=== PATIENT | male | born 1950 | race Caucasian/White ===

== ENCOUNTER 2016-10-24 16:40 | Observation (INO) | payer MEDICARE ==
[2016-10-24] MEDS ORDERED: Nitrostat 0.4 MG (ED) SL ONE ×2 (17:20→17:28)
[2016-10-24] MEDS ORDERED: BABY ASPIRIN 81 MG CHEW PO ONE (17:20)
--- NOTE | 2016-10-24 17:20 | ERPHSYRPT ---
<GERIVIRAJ - Last Filed: 10/24/16 19:50> - History of Present Illness Allergies/Adverse Reactions: cefaclor [From [facility]] Allergy (Verified 10/24/16 17:12) Hoarseness of voice Penicillins Allergy (Verified 10/24/16 17:12) Hives Home Medications: Aspirin [[place] Aspirin] 81 mg PO DAILY 10/24/16 [History] Cyanocobalamin 1000 Mcg/ml [Cyanocobalamin B-12 1000 MCG/ML] 1,000 mcg IJ [History] Dabigatran Etexilate Mesylate [Pradaxa] 150 mg PO BID 10/24/16 [History] Escitalopram Oxalate 20 mg PO DAILY 10/24/16 [History] Insulin Aspart [Novolog Flexpen] 25 unit SQ TID 10/24/16 [History] Insulin Glargine,Hum.rec.anlog [Lantus Solostar] 50 unit SQ BID 10/24/16 [ History] Lisinopril 10 mg [Zestril 10 MG] 10 mg PO QHS 10/24/16 [History] Omeprazole [Prilosec] 40 mg PO DAILY 10/24/16 [History] Tiotropium [place] Inhaler [Spiriva 18 Mcg/Cap Inhaler] 1 ea IH DAILY [History] - Radiology Exams Chest X-ray Interpretation: Discussed w/ radiologist ([facility]) Ordered Tests: Active Orders 24 hr Category Date Time Status Up With Assistance ROUTINE Activity 10/24/16 19:44 Inactive Accucheck ACHS Care 10/24/16 19:42 Inactive Admission/Status Order ROUTINE Care 10/24/16 19:43 Inactive Call Admit Doctor for Orders ROUTINE Care 10/24/16 19:42 Inactive Model Artists' STAT Care 10/24/16 17:20 Active Code Status Order ROUTINE Care 10/24/16 19:43 Inactive EKG-ER Only STAT Care 10/24/16 17:20 Completed IV Care Q6H Care 10/24/16 19:43 Inactive IV Insertion STAT Care 10/24/16 17:30 Active Implement Chest Pain Pathway ROUTINE Care 10/24/16 19:43 Inactive Pulse Oximetry (ED) STAT Care 10/24/16 17:20 Active Bertin Hose, Apply ROUTINE Care 10/24/16 19:43 Inactive Telemetry ROUTINE Care 10/24/16 19:43 Inactive Vital Signs Q4H Care 10/24/16 19:42 Inactive Weight,Daily 0600 Care 10/24/16 19:43 Inactive CHEST 1 VIEW (PORTABLE) Stat Exams 10/24/16 17:21 Completed AMYLASE Stat Lab 10/24/16 17:30 Completed BLOOD CULTURE Stat Lab 10/24/16 19:42 Received CBC W DIFF Stat Lab 10/24/16 17:30 Completed CMP Stat Lab 10/24/16 17:30 Completed D-DIMER QUANTITATION Stat Lab 10/24/16 17:30 Completed LIPASE Stat Lab 10/24/16 17:30 Completed NT PRO BNP Stat Lab 10/24/16 17:30 Completed PROTIME WITH INR Stat Lab 10/24/16 17:30 Completed PTT Stat Lab 10/24/16 17:30 Completed TROPONIN Q3H Lab 10/24/16 17:30 Completed TROPONIN Q3H Lab 10/24/16 21:05 Completed TROPONIN Q3H Lab 10/24/16 23:15 Completed TROPONIN Q3H Lab 10/25/16 02:15 Completed TROPONIN Q3H Lab 10/25/16 05:20 Completed EKG ONCE RT 10/25/16 01:20 Inactive EKG ONCE RT 10/26/16 05:00 Inactive EKG ONCE RT 10/27/16 05:00 Inactive EKG ONCE RT 10/28/16 05:00 Inactive EKG Q8HX2,QAMX3,PRN RT 10/24/16 19:43 Inactive Respiratory Nebulizer STAT RT 10/24/16 19:34 Completed Respiratory Nebulizer STAT RT 10/24/16 19:47 Inactive Transfer Order Routine Transfer 10/24/16 19:42 Completed Medication Summary Generic Name Dose Route Start Last Admin Trade Name Freq PRN Reason Stop Dose Admin Acetaminophen 325 - 650 mg 10/25/16 01:11 10/25/16 07:54 Tylenol 325 Mg PO 11/24/16 01:10 650 mg Q4H PRN PRN Administration FOR TEMP > 101 OR MILD PAIN Al Hydrox/Mg Hydrox/Simethicone 30 ml 10/25/16 01:11 Maalox Es 30 Ml Unit Dose PO 11/24/16 01:10 PRN PRN INDIGESTION Albuterol Sulfate 2.5 mg 10/25/16 11:02 Proventil 2.5 Mg/3 Ml Neb IH 11/24/16 11:01 Q4H PRN PRN SHORTNESS OF BREATH/WHEEZING Albuterol Sulfate 2.5 mg 10/25/16 15:00 10/25/16 14:18 Proventil 2.5 Mg/3 Ml Neb IH 11/24/16 14:59 2.5 mg QIDRT MELANI Administration Aspirin 81 mg 10/25/16 10:00 10/25/16 10:18 Ecotrin 81 Mg PO 11/24/16 09:59 81 mg DAILY MELANI Administration Dabigatran 150 mg 10/25/16 10:00 10/25/16 10:18 Pradaxa 75 Mg PO 11/24/16 09:59 150 mg BID MELANI Administration Escitalopram Oxalate 20 mg 10/25/16 10:00 10/25/16 10:18 Lexapro 10 Mg PO 11/24/16 09:59 20 mg DAILY MELANI Administration Sodium Chloride 1,000 mls @ 50 mls/hr 10/25/16 01:15 Sodium Chloride 0.9% 500 Ml IV 11/24/16 01:14 .Q20H MELANI Levofloxacin/Dextrose 100 mls @ 100 mls/hr 10/25/16 20:00 Levofloxacin 500mg/100ml D5w IV 11/24/16 19:59 Q24H MELANI Insulin Aspart 25 unit 10/25/16 09:00 10/25/16 13:38 Novolog Insulin SQ 11/24/16 08:59 25 unit TIDWM MELANI Administration Insulin Glargine 50 unit 10/25/16 10:00 10/25/16 10:19 Lantus Insulin SQ 11/24/16 09:59 50 unit BID MELANI Administration Lisinopril 10 mg 10/24/16 22:00 10/24/16 22:50 Zestril 10 Mg PO 11/23/16 21:59 10 mg QHS MELANI Administration Magnesium Hydroxide 30 - 60 ml 10/25/16 01:11 Milk Of Magnesia 30 Ml PO 11/24/16 01:10 HS PRN CONSTIPATION Morphine Sulfate 4 mg 10/25/16 01:11 Morphine Sulfate 2 Mg Inj IV 10/30/16 01:10 PRN PRN PAIN Nitroglycerin 0.4 mg 10/25/16 01:11 Nitrostat 0.4 Mg Tablet SL 11/24/16 01:10 .Q5MIN PRN CHEST PAIN Ondansetron HCl 4 mg 10/25/16 01:11 Zofran 4 Mg/2 Ml Vial IV 11/24/16 01:10 Q4H PRN PRN NAUSEA/VOMITING Pantoprazole Sodium 40 mg 10/25/16 10:00 10/25/16 10:18 Protonix 40mg Tablet PO 11/24/16 09:59 40 mg DAILY MELANI Administration Potassium Chloride 10 meq 10/25/16 10:00 10/25/16 10:18 Klor Con 10 Meq PO 11/24/16 09:59 10 meq DAILY MELANI Administration Senna/Docusate Sodium 2 udtab 10/25/16 01:11 Senokot-S Tablet PO 11/24/16 01:10 BID PRN PRN CONSTIPATION Tiotropium [place] 1 ea 10/25/16 10:00 10/25/16 10:42 Spiriva 18 Mcg/Cap Inhaler IH 11/24/16 09:59 1 ea DAILY MELANI Administration Discontinued Medications Generic Name Dose Route Start Last Admin Trade Name Freq PRN Reason Stop Dose Admin Acetaminophen 650 mg 10/24/16 19:42 Tylenol 325 Mg PO 11/23/16 19:41 Q4H PRN PRN PAIN AND/OR FEVER Al Hydrox/Mg Hydrox/Simethicone 30 ml 10/24/16 19:42 Maalox Es 30 Ml Unit Dose PO 11/23/16 19:41 Q4H PRN PRN INDIGESTION Albuterol/Ipratropium 3 ml 10/24/16 19:34 10/24/16 19:49 Duoneb 0.5-3 Mg/3 Ml Neb IH 10/24/16 19:35 3 ml STAT ONE Administration Albuterol/Ipratropium Confirm 10/24/16 19:42 Duoneb 0.5-3 Mg/3 Ml Neb Administered 10/24/16 19:43 Dose 3 ml IH .STK-MED ONE Albuterol/Ipratropium 3 ml 10/24/16 23:00 Duoneb 0.5-3 Mg/3 Ml Neb IH 11/23/16 22:59 Q4HRT MELANI Albuterol/Ipratropium Confirm 10/24/16 22:11 Duoneb 0.5-3 Mg/3 Ml Neb Administered 10/24/16 22:12 Dose 3 ml IH .STK-MED ONE Albuterol/Ipratropium 3 ml 10/24/16 23:00 10/25/16 10:42 Duoneb 0.5-3 Mg/3 Ml Neb IH 11/23/16 22:59 3 ml Q4HRT MELANI Administration Albuterol/Ipratropium 3 ml 10/25/16 15:00 Duoneb 0.5-3 Mg/3 Ml Neb IH 11/24/16 14:59 QIDRT MELANI Aspirin 243 mg 10/24/16 17:20 10/24/16 17:25 Baby Aspirin 81 Mg Chew PO 10/24/16 17:21 243 mg STAT ONE Administration Aspirin Confirm 10/24/16 17:28 Baby Aspirin 81 Mg Chew Administered 10/24/16 17:29 Dose 243 mg .ROUTE .STK-MED ONE Aspirin 325 mg 10/25/16 10:00 Ecotrin 325 Mg PO 11/24/16 09:59 DAILY MELANI Sodium Chloride 1,000 mls @ 100 mls/hr 10/24/16 17:30 10/24/16 17:34 Sodium Chloride 0.9% 1000 Ml IV 11/23/16 17:29 100 mls/hr .Q10H MELANI Administration Sodium Chloride Confirm 10/24/16 17:33 Sodium Chloride 0.9% 1000 Ml Administered 10/24/16 17:34 Dose 1,000 mls @ ud .ROUTE .STK-MED ONE Levofloxacin/Dextrose 100 mls @ 100 mls/hr 10/24/16 19:29 10/24/16 19:40 Levofloxacin 500mg/100ml D5w IV 10/24/16 20:28 100 mls/hr STAT ONE Administration Levofloxacin/Dextrose Confirm 10/24/16 19:32 Levofloxacin 500mg/100ml D5w Administered 10/24/16 19:33 Dose 100 mls @ ud IV .STK-MED ONE Sodium Chloride 500 mls @ 50 mls/hr 10/24/16 19:45 Sodium Chloride 0.9% 500 Ml IV 11/23/16 19:44 .Q10H MELANI Sodium Chloride Confirm 10/25/16 10:09 Sodium Chloride 0.9% 1000 Ml Administered 10/25/16 10:10 Dose 1,000 mls @ ud .ROUTE .STK-MED ONE Insulin Glargine 45 unit 10/24/16 22:00 10/24/16 22:50 Lantus Insulin SQ 11/23/16 21:59 45 unit BID [facility] Administration Levalbuterol HCl 1.25 mg 10/24/16 19:46 Xopenex 1.25 Mg/0.5 Ml Ud Nebule IH 11/23/16 19:45 Q2HPRN PRN DYSPNEA Magnesium Hydroxide 30 - 60 ml 10/24/16 19:42 Milk Of Magnesia 30 Ml PO 11/23/16 19:41 QDP PRN CONSTIPATION Morphine Sulfate 4 mg 10/24/16 19:42 Morphine Sulfate 2 Mg Inj IV 10/29/16 19:41 Q4H PRN PRN CHEST PAIN Nitroglycerin 0.4 mg 10/24/16 17:20 10/24/16 17:26 Nitrostat 0.4 Mg (Ed) SL 10/24/16 17:21 0.4 mg STAT ONE Administration Nitroglycerin Confirm 10/24/16 17:28 Nitrostat 0.4 Mg (Ed) Administered 10/24/16 17:29 Dose 0.4 mg SL .STK-MED ONE Nitroglycerin 0.4 mg 10/24/16 19:42 Nitrostat 0.4 Mg Tablet SL 11/23/16 19:41 .Q5MIN PRN CHEST PAIN Nitroglycerin 1 gm 10/24/16 22:00 Nitro-Bid 2% Ud Packets TOP 11/23/16 21:59 Q8HT [facility] Ondansetron HCl 4 mg 10/24/16 19:42 Zofran 4 Mg/2 Ml Vial IV 11/23/16 19:41 Q4H PRN PRN NAUSEA/VOMITING Senna/Docusate Sodium 2 udtab 10/24/16 19:42 Senokot-S Tablet PO 11/23/16 19:41 BID PRN PRN CONSTIPATION Lab/Rad Data: Laboratory Result Diagrams 10/24/16 17:30 10/24/16 17:30 Laboratory Results 10/24/16 10/24/16 10/24/16 Range/Units 17:30 17:30 17:30 WBC (4.0-10.5) K/mm3 RBC (4.1-5.6) M/mm3 Hgb (12.5-18.0) gm/dl Hct (42-50) % MCV (78-100) fl MCH (26-32) pg MCHC (32-36) g/dl RDW (11.5-14.0) % Plt Count (150-450) K/mm3 MPV (6-9.5) fl Gran % (36.0-66.0) % Lymphocytes % (24.0-44.0) % Monocytes % (0.0-12.0) % Eosinophils % (0.00-5.0) % Basophils % (0.0-0.4) % Basophils # (0-0.4) INR 1.09 (0.8-3.0) PTT 32.5 (24.1-36.1) SECONDS D-Dimer 0.696 H* (0.00-0.49) mg/L Sodium 133 L (136-145) mEq/L Potassium 3.6 (3.5-5.1) mEq/L Chloride 97 L (98-107) mEq/L Carbon Dioxide 27.0 (21-32) mEq/L Anion Gap 12.5 (5-15) MEQ/L BUN 9 (9-20) mg/dL Creatinine 1.08 (0.55-1.30) mg/dl Estimated GFR > 60 ML/MIN Glucose 188 H (70-110) MG/DL Calcium 8.9 (8.5-10.1) mg/dL Total Bilirubin 0.1 L (0.2-1.0) mg/dL AST 21 (15-37) U/L ALT 17 (12-78) U/L Alkaline Phosphatase 61 (46-116) U/L Troponin I < 0.017 (0.000-0.056) ng/ml NT-Pro-B Natriuret Pep 161 H (0-125) pg/ml Serum Total Protein 9.1 H (6.4-8.2) gm/dL Albumin 3.2 L (3.4-5.0) g/dL Amylase 45 (25-115) U/L Lipase 294 (73-393) U/L 10/24/16 Range/Units 17:30 WBC 12.6 H (4.0-10.5) K/mm3 RBC 4.46 (4.1-5.6) M/mm3 Hgb 11.9 L (12.5-18.0) gm/dl Hct 38.3 L (42-50) % MCV 85.9 (78-100) fl MCH 26.6 (26-32) pg MCHC 31.1 L (32-36) g/dl RDW 16.7 H (11.5-14.0) % Plt Count 315 (150-450) K/mm3 MPV 9.4 (6-9.5) fl Gran % 71.9 H (36.0-66.0) % Lymphocytes % 18.8 L (24.0-44.0) % Monocytes % 5.9 (0.0-12.0) % Eosinophils % 2.9 (0.00-5.0) % Basophils % 0.5 (0.0-0.4) % Basophils # 0.06 (0-0.4) INR (0.8-3.0) PTT (24.1-36.1) SECONDS D-Dimer (0.00-0.49) mg/L Sodium (136-145) mEq/L Potassium (3.5-5.1) mEq/L Chloride (98-107) mEq/L Carbon Dioxide (21-32) mEq/L Anion Gap (5-15) MEQ/L BUN (9-20) mg/dL Creatinine (0.55-1.30) mg/dl Estimated GFR ML/MIN Glucose (70-110) MG/DL Calcium (8.5-10.1) mg/dL Total Bilirubin (0.2-1.0) mg/dL AST (15-37) U/L ALT (12-78) U/L Alkaline Phosphatase (46-116) U/L Troponin I (0.000-0.056) ng/ml NT-Pro-B Natriuret Pep (0-125) pg/ml Serum Total Protein (6.4-8.2) gm/dL Albumin (3.4-5.0) g/dL Amylase (25-115) U/L Lipase (73-393) U/L - Progress Progress: improved (LEVAQUIN 500MG IVPB) Progress Note: 10/24/16 19:37 karon 10/24/16 19:37 PATIENT ADMINISTERED DUO NEB AEROSOL TX AND IV LEVAQUIN 500MG IVPB AFTER 2 SETS OF BLOOD CULTURES OBTAINED. 10/24/16 19:39 RE-EXAM CHEST DECREASED BREATH SOUNDS AT BASES IMPROVED, TERMINAL EXPIRATORY WHEEZES RESOLVED Blood Culture(s) Obtained: Yes Antibiotics given: Yes Discussed with .: Ramiro Will see patient in: hospital (observation) (DISCUSSED WITH DR DAMON AT 1935 FOR OBSERVATION) - Departure Time of Disposition: 19:45 Departure Disposition: Observation Clinical Impression: ACUTE CHEST PAIN, PNEUMONIA Condition: Stable Critical Care Time: No <JENNI SARKAR - Last Filed: 10/25/16 15:55> - History of Present Illness Historian: patient Physician History: Patient with long-standing history of diabetes and negative cardiac cath 2 years ago with 2-3 day history of mid substernal heavy burning type chest pain with radiation through the epigastric upper abdomen area. No nausea or vomiting. Has some care for 6 of his normal GERD. No fever or chills. Insulin dependent diabetic and states his blood sugar has been only slightly elevated recently. Has a history of DVT in the past and is on blood thinners and one baby aspirin daily which he has taken today. No new recent leg swelling or shortness of breath. Timing/Duration: today, day(s) (about the same as the last couple days) Activities at Onset: none Quality: burning, fullness, pressure Location: substernal, other (epigastric) Chest Pain Radiation: no radiation Severity of Pain-Max: moderate Severity of Pain-Current: moderate Modifying Factors: Improves With: nothing Associated Symptoms: heartburn Prior Chest Pain/Cardiac Workup: cardiac cath Nitro Today/Relief: no nitro taken today, 0.4 mg x 1, provided by ED Aspirin Treatment Today: 81 mg x 1, 81 mg x 3, provided at home, provided by ED Hx Tetanus, Diphtheria Vaccination/Date Given: No Hx Influenza Vaccination/Date Given: No Hx Pneumococcal Vaccination/Date Given: Yes - Review of Systems Constitutional: No Symptoms Eyes: No Symptoms Ears, Nose, & Throat: No Symptoms Respiratory: No Symptoms Cardiac: Chest Pain Abdominal/Gastrointestinal: Abdominal Pain Genitourinary Symptoms: No Symptoms Musculoskeletal: No Symptoms Skin: No Symptoms Neurological: No Symptoms Psychological: No Symptoms, Memory Loss Endocrine: No Symptoms Hematologic/Lymphatic: No Symptoms Immunological/Allergic: No Symptoms All Other Systems: Reviewed and Negative - Past Medical History Pertinent Past Medical History: Yes Neurological History: Peripheral Neuropathy, Other ENT History: Cataracts Cardiac History: Arrhythmia, Hypertension, Other (DVT) Respiratory History: Asthma, COPD Endocrine Medical History: Diabetes Type II Musculoskeletal History: Arthritis GI Medical History: GERD Psycho-Social History: Anxiety, Depression Male Reproductive Disorders: No Pertinent History Other Medical History: 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 , DVT - Past Surgical History Past Surgical History: Yes Neuro Surgical History: No Pertinent History Cardiac: Cardiac Catheterization Respiratory: No Pertinent History Gastrointestinal: No Pertinent History Genitourinary: No Pertinent History Musculoskeletal: Orthopedic Surgery Male Surgical History: No Pertinent History Other Surgical History: GREAT TOE AMPUTATION - HIP REPLACEMENT - KNEE REPLACEMENT, colonoscopy - Social History Smoking Status: Current every day smoker How long have you smoked: 50 years Exposure to second hand smoke: No Drug Use: none Patient Lives Alone: No - Physical Exam General Appearance: no apparent distress (no Larry), obese (morbidly) Eye Exam: PERRL/EOMI Ears, Nose, Throat Exam: normal ENT inspection Neck Exam: normal inspection, non-tender, supple Respiratory Exam: lungs clear, diminished breath sounds, No respiratory distress , No accessory muscle use, No prolonged expirations, No crackles/rales, No rhonchi, No wheezing Cardiovascular Exam: regular rate/rhythm, normal heart sounds, normal peripheral pulses, capillary refill 2-3 sec Gastrointestinal/Abdomen Exam: soft, normal bowel sounds, tenderness (As noted below), other (morbid obesity difficult exam very mild epigastric tenderness no rebound rigidity or guarding.), No distention, No mass, No guarding Rectal Exam: deferred Back Exam: normal inspection, normal range of motion, CVA tenderness Extremity Exam: other (Chronic diabetic dermatitis and changes of venous insufficiency), No calf tenderness, No tamika's sign Neurologic Exam: alert, oriented x 3, cooperative Skin Exam: normal color, warm, dry, rash (Chronic as noted lower extremities) Lymphatic Exam: No adenopathy SpO2 Interpretation: borderline oxygenation Oxygen Delivery: Room Air - Course Nursing assessment & vital signs reviewed: Yes EKG Interpreted by Me: RATE, Sinus Rhythm, Left [place] Deviation, prolonged QT interval, Right Bundle Branch Block, Non-specific ST Changes (diffuse), Other ( QTC 505 ms markedly prolonged. No previous EKG for comparison) Rhythm Strip: Rate Ordered Tests: Active Orders 24 hr Category Date Time Status Up With Assistance ROUTINE Activity 10/24/16 19:44 Inactive Accucheck ACHS Care 10/24/16 19:42 Inactive Admission/Status Order ROUTINE Care 10/24/16 19:43 Inactive Call Admit Doctor for Orders ROUTINE Care 10/24/16 19:42 Inactive Model Artists' STAT Care 10/24/16 17:20 Active Code Status Order ROUTINE Care 10/24/16 19:43 Inactive EKG-ER Only STAT Care 10/24/16 17:20 Completed IV Care Q6H Care 10/24/16 19:43 Inactive IV Insertion STAT Care 10/24/16 17:30 Active Implement Chest Pain Pathway ROUTINE Care 10/24/16 19:43 Inactive Pulse Oximetry (ED) STAT Care 10/24/16 17:20 Active Bertin Hose, Apply ROUTINE Care 10/24/16 19:43 Inactive Telemetry ROUTINE Care 10/24/16 19:43 Inactive Vital Signs Q4H Care 10/24/16 19:42 Inactive Weight,Daily 0600 Care 10/24/16 19:43 Inactive CHEST 1 VIEW (PORTABLE) Stat Exams 10/24/16 17:21 Completed AMYLASE Stat Lab 10/24/16 17:30 Completed BLOOD CULTURE Stat Lab 10/24/16 19:42 Received CBC W DIFF Stat Lab 10/24/16 17:30 Completed CMP Stat Lab 10/24/16 17:30 Completed D-DIMER QUANTITATION Stat Lab 10/24/16 17:30 Completed LIPASE Stat Lab 10/24/16 17:30 Completed NT PRO BNP Stat Lab 10/24/16 17:30 Completed PROTIME WITH INR Stat Lab 10/24/16 17:30 Completed PTT Stat Lab 10/24/16 17:30 Completed TROPONIN Q3H Lab 10/24/16 17:30 Completed TROPONIN Q3H Lab 10/24/16 21:05 Completed TROPONIN Q3H Lab 10/24/16 23:15 Completed TROPONIN Q3H Lab 10/25/16 02:15 Completed TROPONIN Q3H Lab 10/25/16 05:20 Completed EKG ONCE RT 10/25/16 01:20 Inactive EKG ONCE RT 10/26/16 05:00 Inactive EKG ONCE RT 10/27/16 05:00 Inactive EKG ONCE RT 10/28/16 05:00 Inactive EKG Q8HX2,QAMX3,PRN RT 10/24/16 19:43 Inactive Respiratory Nebulizer STAT RT 10/24/16 19:34 Completed Respiratory Nebulizer STAT RT 10/24/16 19:47 Inactive Transfer Order Routine Transfer 10/24/16 19:42 Completed Medication Summary Generic Name Dose Route Start Last Admin Trade Name Freq PRN Reason Stop Dose Admin Acetaminophen 325 - 650 mg 10/25/16 01:11 10/25/16 07:54 Tylenol 325 Mg PO 11/24/16 01:10 650 mg Q4H PRN PRN Administration FOR TEMP > 101 OR MILD PAIN Al Hydrox/Mg Hydrox/Simethicone 30 ml 10/25/16 01:11 Maalox Es 30 Ml Unit Dose PO 11/24/16 01:10 PRN PRN INDIGESTION Albuterol Sulfate 2.5 mg 10/25/16 11:02 Proventil 2.5 Mg/3 Ml Neb IH 11/24/16 11:01 Q4H PRN PRN SHORTNESS OF BREATH/WHEEZING Albuterol Sulfate 2.5 mg 10/25/16 15:00 10/25/16 14:18 Proventil 2.5 Mg/3 Ml Neb IH 11/24/16 14:59 2.5 mg QIDRT MELANI Administration Aspirin 81 mg 10/25/16 10:00 10/25/16 10:18 Ecotrin 81 Mg PO 11/24/16 09:59 81 mg DAILY MELANI Administration Dabigatran 150 mg 10/25/16 10:00 10/25/16 10:18 Pradaxa 75 Mg PO 11/24/16 09:59 150 mg BID MELANI Administration Escitalopram Oxalate 20 mg 10/25/16 10:00 10/25/16 10:18 Lexapro 10 Mg PO 11/24/16 09:59 20 mg DAILY MELANI Administration Sodium Chloride 1,000 mls @ 50 mls/hr 10/25/16 01:15 Sodium Chloride 0.9% 500 Ml IV 11/24/16 01:14 .Q20H MELANI Levofloxacin/Dextrose 100 mls @ 100 mls/hr 10/25/16 20:00 Levofloxacin 500mg/100ml D5w IV 11/24/16 19:59 Q24H MELANI Insulin Aspart 25 unit 10/25/16 09:00 10/25/16 13:38 Novolog Insulin SQ 11/24/16 08:59 25 unit TIDWM MELANI Administration Insulin Glargine 50 unit 10/25/16 10:00 10/25/16 10:19 Lantus Insulin SQ 11/24/16 09:59 50 unit BID MELANI Administration Lisinopril 10 mg 10/24/16 22:00 10/24/16 22:50 Zestril 10 Mg PO 11/23/16 21:59 10 mg QHS MELANI Administration Magnesium Hydroxide 30 - 60 ml 10/25/16 01:11 Milk Of Magnesia 30 Ml PO 11/24/16 01:10 HS PRN CONSTIPATION Morphine Sulfate 4 mg 10/25/16 01:11 Morphine Sulfate 2 Mg Inj IV 10/30/16 01:10 PRN PRN PAIN Nitroglycerin 0.4 mg 10/25/16 01:11 Nitrostat 0.4 Mg Tablet SL 11/24/16 01:10 .Q5MIN PRN CHEST PAIN Ondansetron HCl 4 mg 10/25/16 01:11 Zofran 4 Mg/2 Ml Vial IV 11/24/16 01:10 Q4H PRN PRN NAUSEA/VOMITING Pantoprazole Sodium 40 mg 10/25/16 10:00 10/25/16 10:18 Protonix 40mg Tablet PO 11/24/16 09:59 40 mg DAILY MELANI Administration Potassium Chloride 10 meq 10/25/16 10:00 10/25/16 10:18 Klor Con 10 Meq PO 11/24/16 09:59 10 meq DAILY MELANI Administration Senna/Docusate Sodium 2 udtab 10/25/16 01:11 Senokot-S Tablet PO 11/24/16 01:10 BID PRN PRN CONSTIPATION Tiotropium [place] 1 ea 10/25/16 10:00 10/25/16 10:42 Spiriva 18 Mcg/Cap Inhaler IH 11/24/16 09:59 1 ea DAILY MELANI Administration Discontinued Medications Generic Name Dose Route Start Last Admin Trade Name Freq PRN Reason Stop Dose Admin Acetaminophen 650 mg 10/24/16 19:42 Tylenol 325 Mg PO 11/23/16 19:41 Q4H PRN PRN PAIN AND/OR FEVER Al Hydrox/Mg Hydrox/Simethicone 30 ml 10/24/16 19:42 Maalox Es 30 Ml Unit Dose PO 11/23/16 19:41 Q4H PRN PRN INDIGESTION Albuterol/Ipratropium 3 ml 10/24/16 19:34 10/24/16 19:49 Duoneb 0.5-3 Mg/3 Ml Neb IH 10/24/16 19:35 3 ml STAT ONE Administration Albuterol/Ipratropium Confirm 10/24/16 19:42 Duoneb 0.5-3 Mg/3 Ml Neb Administered 10/24/16 19:43 Dose 3 ml IH .STK-MED ONE Albuterol/Ipratropium 3 ml 10/24/16 23:00 Duoneb 0.5-3 Mg/3 Ml Neb IH 11/23/16 22:59 Q4HRT MELANI Albuterol/Ipratropium Confirm 10/24/16 22:11 Duoneb 0.5-3 Mg/3 Ml Neb Administered 10/24/16 22:12 Dose 3 ml IH .STK-MED ONE Albuterol/Ipratropium 3 ml 10/24/16 23:00 10/25/16 10:42 Duoneb 0.5-3 Mg/3 Ml Neb IH 11/23/16 22:59 3 ml Q4HRT MELANI Administration Albuterol/Ipratropium 3 ml 10/25/16 15:00 Duoneb 0.5-3 Mg/3 Ml Neb IH 11/24/16 14:59 QIDRT MELANI Aspirin 243 mg 10/24/16 17:20 10/24/16 17:25 Baby Aspirin 81 Mg Chew PO 10/24/16 17:21 243 mg STAT ONE Administration Aspirin Confirm 10/24/16 17:28 Baby Aspirin 81 Mg Chew Administered 10/24/16 17:29 Dose 243 mg .ROUTE .STK-MED ONE Aspirin 325 mg 10/25/16 10:00 Ecotrin 325 Mg PO 11/24/16 09:59 DAILY MELANI Sodium Chloride 1,000 mls @ 100 mls/hr 10/24/16 17:30 10/24/16 17:34 Sodium Chloride 0.9% 1000 Ml IV 11/23/16 17:29 100 mls/hr .Q10H MELANI Administration Sodium Chloride Confirm 10/24/16 17:33 Sodium Chloride 0.9% 1000 Ml Administered 10/24/16 17:34 Dose 1,000 mls @ ud .ROUTE .STK-MED ONE Levofloxacin/Dextrose 100 mls @ 100 mls/hr 10/24/16 19:29 10/24/16 19:40 Levofloxacin 500mg/100ml D5w IV 10/24/16 20:28 100 mls/hr STAT ONE Administration Levofloxacin/Dextrose Confirm 10/24/16 19:32 Levofloxacin 500mg/100ml D5w Administered 10/24/16 19:33 Dose 100 mls @ ud IV .STK-MED ONE Sodium Chloride 500 mls @ 50 mls/hr 10/24/16 19:45 Sodium Chloride 0.9% 500 Ml IV 11/23/16 19:44 .Q10H MELANI Sodium Chloride Confirm 10/25/16 10:09 Sodium Chloride 0.9% 1000 Ml Administered 10/25/16 10:10 Dose 1,000 mls @ ud .ROUTE .STK-MED ONE Insulin Glargine 45 unit 10/24/16 22:00 10/24/16 22:50 Lantus Insulin SQ 11/23/16 21:59 45 unit BID MELANI Administration Levalbuterol HCl 1.25 mg 10/24/16 19:46 Xopenex 1.25 Mg/0.5 Ml Ud Nebule IH 11/23/16 19:45 Q2HPRN PRN DYSPNEA Magnesium Hydroxide 30 - 60 ml 10/24/16 19:42 Milk Of Magnesia 30 Ml PO 11/23/16 19:41 QDP PRN CONSTIPATION Morphine Sulfate 4 mg 10/24/16 19:42 Morphine Sulfate 2 Mg Inj IV 10/29/16 19:41 Q4H PRN PRN CHEST PAIN Nitroglycerin 0.4 mg 10/24/16 17:20 10/24/16 17:26 Nitrostat 0.4 Mg (Ed) SL 10/24/16 17:21 0.4 mg STAT ONE Administration Nitroglycerin Confirm 10/24/16 17:28 Nitrostat 0.4 Mg (Ed) Administered 10/24/16 17:29 Dose 0.4 mg SL .STK-MED ONE Nitroglycerin 0.4 mg 10/24/16 19:42 Nitrostat 0.4 Mg Tablet SL 11/23/16 19:41 .Q5MIN PRN CHEST PAIN Nitroglycerin 1 gm 10/24/16 22:00 Nitro-Bid 2% Ud Packets TOP 11/23/16 21:59 Q8HT MELANI Ondansetron HCl 4 mg 10/24/16 19:42 Zofran 4 Mg/2 Ml Vial IV 11/23/16 19:41 Q4H PRN PRN NAUSEA/VOMITING Senna/Docusate Sodium 2 udtab 10/24/16 19:42 Senokot-S Tablet PO 11/23/16 19:41 BID PRN PRN CONSTIPATION Lab/Rad Data: Laboratory Result Diagrams 10/24/16 17:30 10/24/16 17:30 Laboratory Results 10/24/16 10/24/16 10/24/16 Range/Units 17:30 17:30 17:30 WBC (4.0-10.5) K/mm3 RBC (4.1-5.6) M/mm3 Hgb (12.5-18.0) gm/dl Hct (42-50) % MCV (78-100) fl MCH (26-32) pg MCHC (32-36) g/dl RDW (11.5-14.0) % Plt Count (150-450) K/mm3 MPV (6-9.5) fl Gran % (36.0-66.0) % Lymphocytes % (24.0-44.0) % Monocytes % (0.0-12.0) % Eosinophils % (0.00-5.0) % Basophils % (0.0-0.4) % Basophils # (0-0.4) INR 1.09 (0.8-3.0) PTT 32.5 (24.1-36.1) SECONDS D-Dimer 0.696 H* (0.00-0.49) mg/L Sodium 133 L (136-145) mEq/L Potassium 3.6 (3.5-5.1) mEq/L Chloride 97 L (98-107) mEq/L Carbon Dioxide 27.0 (21-32) mEq/L Anion Gap 12.5 (5-15) MEQ/L BUN 9 (9-20) mg/dL Creatinine 1.08 (0.55-1.30) mg/dl Estimated GFR > 60 ML/MIN Glucose 188 H (70-110) MG/DL Calcium 8.9 (8.5-10.1) mg/dL Total Bilirubin 0.1 L (0.2-1.0) mg/dL AST 21 (15-37) U/L ALT 17 (12-78) U/L Alkaline Phosphatase 61 (46-116) U/L Troponin I < 0.017 (0.000-0.056) ng/ml NT-Pro-B Natriuret Pep 161 H (0-125) pg/ml Serum Total Protein 9.1 H (6.4-8.2) gm/dL Albumin 3.2 L (3.4-5.0) g/dL Amylase 45 (25-115) U/L Lipase 294 (73-393) U/L 10/24/16 Range/Units 17:30 WBC 12.6 H (4.0-10.5) K/mm3 RBC 4.46 (4.1-5.6) M/mm3 Hgb 11.9 L (12.5-18.0) gm/dl Hct 38.3 L (42-50) % MCV 85.9 (78-100) fl MCH 26.6 (26-32) pg MCHC 31.1 L (32-36) g/dl RDW 16.7 H (11.5-14.0) % Plt Count 315 (150-450) K/mm3 MPV 9.4 (6-9.5) fl Gran % 71.9 H (36.0-66.0) % Lymphocytes % 18.8 L (24.0-44.0) % Monocytes % 5.9 (0.0-12.0) % Eosinophils % 2.9 (0.00-5.0) % Basophils % 0.5 (0.0-0.4) % Basophils # 0.06 (0-0.4) INR (0.8-3.0) PTT (24.1-36.1) SECONDS D-Dimer (0.00-0.49) mg/L Sodium (136-145) mEq/L Potassium (3.5-5.1) mEq/L Chloride (98-107) mEq/L Carbon Dioxide (21-32) mEq/L Anion Gap (5-15) MEQ/L BUN (9-20) mg/dL Creatinine (0.55-1.30) mg/dl Estimated GFR ML/MIN Glucose (70-110) MG/DL Calcium (8.5-10.1) mg/dL Total Bilirubin (0.2-1.0) mg/dL AST (15-37) U/L ALT (12-78) U/L Alkaline Phosphatase (46-116) U/L Troponin I (0.000-0.056) ng/ml NT-Pro-B Natriuret Pep (0-125) pg/ml Serum Total Protein (6.4-8.2) gm/dL Albumin (3.4-5.0) g/dL Amylase (25-115) U/L Lipase (73-393) U/L - Progress Progress: improved Air Movement: fair Progress Note: 10/24/16 19:28Case discussed with Dr. Pavon on shift change or or he will assume management.
[2016-10-24] MEDS ORDERED: BABY ASPIRIN 81 MG CHEW ONE (17:28)
[2016-10-24] MEDS ORDERED: Sodium Chloride 0.9% 1000 ML 1,000 ML IV SCH (17:30)
[2016-10-24] MEDS ORDERED: Sodium Chloride 0.9% 1000 ML 1,000 ML ONE (17:33)
[2016-10-24 17:49] LABS: BASOPHIL % 0.5 % (0.0-0.4); Eosinophil % 2.9 % (0.00-5.0); Granulocytes % 71.9 % (36.0-66.0); Lymphocytes % 18.8 % (24.0-44.0); Mean Cell Volume 85.9 fl (78-100); Mean Corpuscular Hemoglobin 26.6 pg (26-32); Mean Platelet Volume 9.4 fl (6-9.5); Monocytes % 5.9 % (0.0-12.0); Platelet Count 315 K/mm3 (150-450); Red Blood Count 4.46 M/mm3 (4.1-5.6); Red Cell Distribution Width 16.7 % (11.5-14.0); White Blood Count 12.6 K/mm3 (4.0-10.5)
[2016-10-24 18:05] LABS: INR 1.09 (0.8-3.0); PROTIME 12.2 SECONDS (8.83-12.87)
[2016-10-24 18:07] LABS: PTT 32.5 SECONDS (24.1-36.1)
[2016-10-24 18:20] LABS: ALBUMIN 3.2 g/dL (3.4-5.0); ALKALINE PHOSPHATASE 61 U/L (46-116); ANION GAP 12.5 MEQ/L (5-15); BLOOD UREA NITROGEN 9 mg/dL (9-20); CHLORIDE 97 mEq/L (98-107); Glucose 188 MG/DL (70-110); LIPASE 294 U/L (73-393); Potassium 3.6 mEq/L (3.5-5.1); SGOT/AST 21 U/L (15-37); SGPT/ALT 17 U/L (12-78); SODIUM 133 mEq/L (136-145); Total Protein 9.1 gm/dL (6.4-8.2)
[2016-10-24 18:34] LABS: BILIRUBIN,TOTAL 0.1 mg/dL (0.2-1.0)
[2016-10-24] MEDS ORDERED: Levofloxacin 500MG/100ML D5W 100 ML IV ONE ×2 (19:29→19:32)
[2016-10-24] MEDS ORDERED: DUONEB 0.5-3 MG/3 ml Neb IH ONE ×3 (19:34→22:11)
[2016-10-24] MEDS ORDERED: TYLENOL 325 MG PO PRN (19:42)
[2016-10-24] MEDS ORDERED: Nitrostat 0.4 MG Tablet SL PRN (19:42)
[2016-10-24] MEDS ORDERED: MILK OF MAGNESIA 30 ML PO PRN (19:42)
[2016-10-24] MEDS ORDERED: Senokot-S Tablet PO PRN (19:42)
[2016-10-24] MEDS ORDERED: MORPHINE SULFATE 2 MG INJ IV PRN (19:42)
[2016-10-24] MEDS ORDERED: MAALOX ES 30 ML UNIT DOSE PO PRN (19:42)
[2016-10-24] MEDS ORDERED: Zofran 4 MG/2 ML VIAL IV PRN (19:42)
[2016-10-24] MEDS ORDERED: Sodium Chloride 0.9% 500 ML 500 ML IV SCH (19:45)
[2016-10-24] MEDS ORDERED: Xopenex 1.25 MG/0.5 ML UD NEBULE IH PRN (19:46)
[2016-10-24] MEDS ORDERED: NITRO-BID 2% UD PACKETS TOP SCH (22:00)
[2016-10-24] MEDS ORDERED: Lantus Insulin SQ SCH (22:00)
[2016-10-24] MEDS ORDERED: Zestril 10 MG PO SCH (22:00)
[2016-10-24] MEDS ORDERED: DUONEB 0.5-3 MG/3 ml Neb IH SCH (23:00)
[2016-10-24] MEDS: DUONEB 0.5-3 MG/3 ml Neb IH SCH (23:24)
[2016-10-25] MEDS ORDERED: MAALOX ES 30 ML UNIT DOSE PO PRN (01:11)
[2016-10-25] MEDS ORDERED: Zofran 4 MG/2 ML VIAL IV PRN (01:11)
[2016-10-25] MEDS ORDERED: TYLENOL 325 MG PO PRN (01:11)
[2016-10-25] MEDS ORDERED: Senokot-S Tablet PO PRN (01:11)
[2016-10-25] MEDS ORDERED: MORPHINE SULFATE 2 MG INJ IV PRN (01:11)
[2016-10-25] MEDS ORDERED: Nitrostat 0.4 MG Tablet SL PRN (01:11)
[2016-10-25] MEDS ORDERED: MILK OF MAGNESIA 30 ML PO PRN (01:11)
[2016-10-25] MEDS: DUONEB 0.5-3 MG/3 ml Neb IH SCH ×3 (03:06→10:42)
--- NOTE | 2016-10-25 08:15 | PCM.SSS ---
History of Present Illness - Chief Complaint Chief Complaint: pneumonia, chest pain rule out History of Present Illness: is a 65 year old male pt of DR. Damon with DM and COPD who came to ER with burning chest pain. Pain was substernal, radiating up from epigastrum, nonradiating, no SOB, no palpitations. Pt is a fairly poor historian. States not coughing much but knows he has COPD. CXR with infiltrates but CT chest neg. His last troponins are somewhat elevated but still within normal limits. He has a hx CAD, last had a heart catheterization 2 years ago by a doctor in [place], he is unsure who. States he checks BS in a.m.s and have been 110s-120s. last a1c Jul 2016 was 8.2. He states he eats a lot of bananas and would rather have a pill. His K+ is 3.6. - Review of Systems Cardiac: Chest Pain Abdominal/Gastrointestinal: Vomiting (last night) Skin: Dryness Neurological: Other (has brain tumor) All Other Systems: Reviewed and Negative Medications & Allergies Home Medications: Home Medication List Aspirin [[place] Aspirin] 81 mg PO DAILY 10/24/16 [History Confirmed 10/24/16 ] Cyanocobalamin 1000 Mcg/ml [Cyanocobalamin B-12 1000 MCG/ML] 1,000 mcg IJ [History] Dabigatran Etexilate Mesylate [Pradaxa] 150 mg PO BID 10/24/16 [History Confirmed 10/24/16] Escitalopram Oxalate 20 mg PO DAILY 10/24/16 [History Confirmed 10/24/16] Insulin Aspart [Novolog Flexpen] 25 unit SQ TID 10/24/16 [History Confirmed ] Insulin Glargine,Hum.rec.anlog [Lantus Solostar] 50 unit SQ BID 10/24/16 [ History Confirmed 10/24/16] Lisinopril 10 mg [Zestril 10 MG] 10 mg PO QHS 10/24/16 [History Confirmed 10/24/16] Omeprazole [Prilosec] 40 mg PO DAILY 10/24/16 [History Confirmed 10/24/16] Tiotropium [place] Inhaler [Spiriva 18 Mcg/Cap Inhaler] 1 ea IH DAILY [History Confirmed 10/24/16] Allergies/Adverse Reactions: Allergies Allergy/AdvReac Type Severity Reaction Status Date / Time cefaclor [From [facility]] Allergy Hoarseness Verified 10/24/16 17:12 of voice Penicillins Allergy Hives Verified 10/24/16 17:12 - Past Medical History Past Medical History: Yes Neurological History: No Pertinent History ENT History: No Pertinent History Cardiac History: Deep Vein Thrombosis, Hypertension Respiratory History: Pneumonia Endocrine Medical History: Diabetes Type II Musculoskelatal History: No Pertinent History GI Medical History: GERD History: No Pertinent History Pyscho-Social History: Depression Male Reproductive Disorders: No Pertinent History Comment: patient states he has 2 brain tumors. - Past Surgical History Past Surgical History: No Neuro Surgical History: No Pertinent History Cardiac History: No Pertinent History Respiratory Surgery: No Pertinent History GI Surgical History: No Pertinent History Genitourinary Surgical Hx: No Pertinent History Musculskeletal Surgical Hx: No Pertinent History Male Surgical History: No Pertinent History Other Surgical History: GREAT TOE AMPUTATION - HIP REPLACEMENT - KNEE REPLACEMENT, colonoscopy - Social History Smoking Status: Heavy tobacco smoker How long have you smoked: 57 years Exposure to second hand smoke: Yes Alcohol: None Drug Use: none - Physical Exam Vital Signs: Vital Signs - 24 hr Temp Pulse Pulse Resp BP BP Pulse Ox 10/25/16 07:24 98 F 64 18 140/66 93 L 10/25/16 06:36 78 21 91 L 10/25/16 06:20 97.9 F 72 20 124/75 91 L 10/25/16 04:00 97.9 F 72 20 142/61 91 L 10/25/16 03:33 20 10/25/16 03:07 72 20 91 L 10/25/16 00:00 71 19 10/24/16 23:24 71 24 93 L 10/24/16 21:06 98.5 F 87 28 H 145/62 94 L 10/24/16 19:49 60 20 97 10/24/16 19:19 76 16 137/67 95 10/24/16 18:07 77 18 136/64 93 L 10/24/16 17:29 93 L 10/24/16 17:00 98.3 F 85 90 18 166/85 93 L Oxygen-Last 24 hours O2 Percentage 2 Liters = 28% O2 Percentage 2 Liters = 28% O2 Percentage 2 Liters = 28% General Appearance: no apparent distress, obese Neurologic Exam: alert, oriented x 3, cooperative Eye Exam: eyes nml inspection Neck Exam: normal inspection Respiratory Exam: diminished breath sounds, crackles/rales (faint, LLL), other ( good air exchange, increased exp phase), No rhonchi, No wheezing Cardiovascular Exam: regular rate/rhythm, normal heart sounds, No murmur Gastrointestinal/Abdomen Exam: soft, normal bowel sounds, No tenderness Extremity Exam: swelling (trace pretibial edema; chronic venous stasis change), other (copious amounts of dry skin bilat feet, most marked on plantar surfaces. Some disfigurement of digits. thickened nails. L knee with dried blood and some excoriation; otherwise no lesions.) Skin Exam: warm, dry Results - Labs Lab/Micro Results: Lab Results-Last 24 Hours 10/24/16 10/24/16 10/25/16 Range/Units 21:05 23:15 02:15 Troponin I 0.019 0.018 < 0.017 (0.000-0.056) ng/ml 10/25/16 Range/Units 05:20 Troponin I 0.027 (0.000-0.056) ng/ml - Radiology Impressions Radiology Exams & Impressions: Radiology Procedures Category Date Time Status CHEST WITH CONTRAST [CT] Urgent Exams 10/24/16 22:39 Taken - Other Procedures and Tests Respiratory Therapy 10/24/16 22:15 Respiratory Nebulizer UD 10/24/16 23:00 Respiratory Nebulizer 10/26/16 05:00 EKG ONCE 10/27/16 05:00 EKG ONCE 10/28/16 05:00 EKG ONCE Assessment/Plan (1) Chest pain Current Visit: Yes Status: Acute Assessment & Plan: last troponin increased but still within normal limits. Will check 3 more, if elevated above normal would contact his is consultant. If all normal he may be able to go home today as he states he is "feeling fine" right now. Code(s): R07.9 - CHEST PAIN, UNSPECIFIED (2) COPD (chronic obstructive pulmonary disease) Current Visit: Yes Status: Chronic Assessment & Plan: CXR wtih infiltrates but CTA chest nothing acute. Would send home on po doxycycline; may be able to d/c today. Pt not complaining of increased cough recently. (3) Onychomycosis Current Visit: Yes Status: Chronic Assessment & Plan: Pt with recent cellulitis but I see no signs of this today. However will be treated with doxycycline as above. He does have one excoriated lesion. Code(s): B35.1 - TINEA UNGUIUM (4) Diabetes Current Visit: No Status: Chronic Assessment & Plan: WIll recheck a1c. continue home insulin. Code(s): E11.9 - TYPE 2 DIABETES MELLITUS WITHOUT COMPLICATIONS (5) Hypokalemia Current Visit: Yes Status: Chronic Assessment & Plan: Likely, as he is at the low range of normal for potassium with eating "a lot of " bananas. Will add a 10mEq K+ daily. Code(s): E87.6 - HYPOKALEMIA Hospital Summary - Hospital Course Hospital Course: Pt admitted with burning chest pain and infiltrates on CXR. His CTA chest was negative. He feels fine this morning; however last troponin slightly elevated ( still wnl). Will check 3 more troponins, if all negative can d/c home. If any elevated above normal will send out to is consultant in [place]. He is not complaining of much cough. Recent cellulitis but LE with chronic appearing changes today. - Vitals & Intake/Output Vital Signs: Vital Signs Temperature 98 F 10/25/16 07:24 Pulse Rate 64 10/25/16 07:24 Respiratory Rate 18 10/25/16 07:24 Blood Pressure 140/66 10/25/16 07:24 O2 Sat by Pulse Oximetry 93 L 10/25/16 07:24 Oxygen-Last Documented O2 Percentage 2 Liters = 28% Intake & Output: Intake & Output 10/22/16 10/23/16 10/24/16 10/25/16 11:59 11:59 11:59 11:59 Intake Total 2070 Output Total 1400 Balance 670 Weight 123.876 kg - Lab Result Diagrams: 10/24/16 17:30 10/24/16 17:30 Lab Results-Last 24 Hrs: Lab Results-Last 24 Hours 10/24/16 10/24/16 10/25/16 Range/Units 21:05 23:15 02:15 Troponin I 0.019 0.018 < 0.017 (0.000-0.056) ng/ml 10/25/16 Range/Units 05:20 Troponin I 0.027 (0.000-0.056) ng/ml - Radiology Exams Ordered Rad Exams-Entire Visit: Radiology Procedures Category Date Time Status CHEST WITH CONTRAST [CT] Urgent Exams 10/24/16 22:39 Taken - Procedures and Test Procedures and Tests throughout Hospitalization: Therapy Orders & Screens 10/24/16 22:15 Respiratory Nebulizer UD Comment: Q2PRN Diagnosis: pneumonia, chest pain rule out 10/24/16 23:00 Respiratory Nebulizer Comment: Diagnosis: pneumonia, chest pain rule out 10/25/16 01:20 EKG ONCE Comment: Diagnosis: pneumonia, chest pain rule out 10/26/16 05:00 EKG ONCE Comment: Diagnosis: pneumonia, chest pain rule out 10/27/16 05:00 EKG ONCE Comment: Diagnosis: pneumonia, chest pain rule out 10/28/16 05:00 EKG ONCE Comment: Diagnosis: pneumonia, chest pain rule out - Discharge Disposition: Home, Self-Care Condition: Stable Prescriptions: No Action Omeprazole [Prilosec] 40 mg PO DAILY Insulin Aspart [Novolog Flexpen] 25 unit SQ TID Dabigatran Etexilate Mesylate [Pradaxa] 150 mg PO BID Tiotropium [place] Inhaler [Spiriva 18 Mcg/Cap Inhaler] 1 ea IH DAILY Insulin Glargine,Hum.rec.anlog [Lantus Solostar] 50 unit SQ BID Aspirin [[place] Aspirin] 81 mg PO DAILY Escitalopram Oxalate 20 mg PO DAILY Cyanocobalamin 1000 Mcg/ml [Cyanocobalamin B-12 1000 MCG/ML] 1,000 mcg IJ Lisinopril 10 mg [Zestril 10 MG] 10 mg PO QHS Follow up with: CODY DAMON MD [Primary Care Provider] -
--- NOTE | 2016-10-25 09:17 | XRAY ---
Exam: CT angiography of the chest with IV contrast (80 ML's of Isovue 370 contrast) from 10/24/2016. CTDI: 23.69 Comparison: AP upright portable chest film from 10/24/2016. Indication: Dyspnea, chest pain, elevated d-dimer, history of DVT. Additional information: Inoperable brain tumor, insulin-dependent diabetes mellitus. Technique: Axial images were obtained through the chest during automated injection of intravenous contrast material following the pulmonary embolism protocol. Coronal and sagittal reformatted images were created and reviewed. Findings: The heart size is mildly enlarged without evidence of pericardial effusion. Coronary artery vascular calcification is seen. Atherosclerotic vascular calcification is seen within the thoracic aorta. The ascending aorta measures up to 4.0 cm in width at the level of the left main pulmonary artery which is borderline dilated. I see no other evidence of abnormal thoracic aortic dilation or dissection. I see no abnormal mediastinal or. Hilar lymphadenopathy. Some small to medium-sized lymph nodes are seen within the axilla, the largest measuring 2.6 cm x 1.4 cm within the right axilla. I believe this is relatively nonspecific and probably represents a postinflammatory lymph node. The central airways are patent. A small calcified granuloma is seen within the posterior left lung apex. Minimal posterior compression atelectatic changes are seen within the posterior lung sulci. I also note some other minor linear atelectasis or scarring at the lateral right lung base. No air space infiltrates, pneumothorax, or pleural effusion is seen. No acute process is seen within the visualized upper abdomen. The adrenal glands are only partially seen. There is a suggestion of slight thickening of the adrenal gland limbs. No acute fracture or suspicious bone lesions are seen. Impression: 1. No CT evidence of acute pulmonary embolism is seen. 2. Borderline dilation of the ascending aorta which measures up to 4.0 cm in maximum diameter at the level of the main pulmonary artery trunk on the coronal images. No aortic dissection is seen. 3. Mild cardiomegaly and coronary artery atherosclerosis are seen. 4. Minor linear scarring/atelectasis at the right lung base. I also note minimal posterior compression atelectatic changes within the posterior lung sulci. 5. No other acute lung disease is seen.
--- NOTE | 2016-10-25 09:24 | XRAY ---
Exam: AP upright portable chest film from 1735 hours on 10/24/2016. Comparison: None. Indication: Chest pain and heaviness. Findings: I believe the transverse heart size is slightly enlarged. Moderate tortuosity of the ascending and descending thoracic aorta is seen. The remainder the elton and mediastinal structures appears unremarkable. I believe there is some minimal linear plate atelectasis or scarring at the right lung base. Pulmonary vascularity appears within normal limits. A small calcified granuloma is seen at the upper aspect of the left lung apex. No air space infiltrates, pneumothorax, or pleural fluid is seen. The visualized bones appear intact. Impression: 1. Mild cardiomegaly without evidence of heart failure or pulmonary edema. 2. Minimal linear plate atelectasis or scarring at the right lung base. No air space infiltrates or other active lung disease is seen.
[2016-10-25] MEDS ORDERED: Spiriva 18 Mcg/Cap Inhaler IH SCH (10:00)
[2016-10-25] MEDS ORDERED: Lexapro 10 MG PO SCH (10:00)
[2016-10-25] MEDS ORDERED: NON-FORMULARY ITEM (Dabigatran Etexilate Mesylate [Pradaxa] 150 MG) PO SCH (10:00)
[2016-10-25] MEDS ORDERED: Lantus Insulin SQ SCH (10:00)
[2016-10-25] MEDS ORDERED: PRADAXA 75 MG PO SCH (10:00)
[2016-10-25] MEDS ORDERED: Klor Con 10 MEQ PO SCH (10:00)
[2016-10-25] MEDS ORDERED: INSULIN GLARGINE HUM REC ANLOG 50 UNIT SQ SCH (10:00)
[2016-10-25] MEDS ORDERED: ECOTRIN 81 MG PO SCH (10:00)
[2016-10-25] MEDS ORDERED: Protonix 40MG Tablet PO SCH (10:00)
[2016-10-25] MEDS ORDERED: Ecotrin 325 MG PO SCH (10:00)
[2016-10-25] MEDS ORDERED: NON-FORMULARY ITEM (Escitalopram Oxalate [Escitalopram Oxalate] 20 MG) PO SCH (10:00)
[2016-10-25] MEDS ORDERED: INSULIN ASPART 25 UNIT SQ SCH (10:00)
[2016-10-25] MEDS ORDERED: NON-FORMULARY ITEM (Omeprazole [Prilosec] 40 MG) PO SCH (10:00)
[2016-10-25] MEDS ORDERED: Sodium Chloride 0.9% 1000 ML 1,000 ML ONE (10:09)
[2016-10-25] MEDS: NovoLOG Insulin SQ SCH ×3 (10:18→16:45)
[2016-10-25] MEDS ORDERED: PROVENTIL 2.5 MG/3 ML NEB IH PRN (11:02)
[2016-10-25 15:00] VITALS: PULSE 82
[2016-10-25] MEDS ORDERED: PROVENTIL 2.5 MG/3 ML NEB IH SCH (15:00)
[2016-10-25] MEDS ORDERED: DUONEB 0.5-3 MG/3 ml Neb IH SCH (15:00)
--- NOTE | 2016-10-25 16:30 | PCM.DCORD ---
- Discharge Disposition: Home, Self-Care Condition: Stable Prescriptions: New Doxycycline Hyclate 100 mg PO BID #18 tablet Potassium Chloride 10 Meq Tab* [Klor Con 10 MEQ] 10 meq PO DAILY #30 tab Continue Omeprazole [Prilosec] 40 mg PO DAILY Insulin Aspart [Novolog Flexpen] 25 unit SQ TID Dabigatran Etexilate Mesylate [Pradaxa] 150 mg PO BID Tiotropium [place] Inhaler [Spiriva 18 Mcg/Cap Inhaler] 1 ea IH DAILY Insulin Glargine,Hum.rec.anlog [Lantus Solostar] 50 unit SQ BID Aspirin [[place] Aspirin] 81 mg PO DAILY Escitalopram Oxalate 20 mg PO DAILY Cyanocobalamin 1000 Mcg/ml [Cyanocobalamin B-12 1000 MCG/ML] 1,000 mcg IJ Lisinopril 10 mg [Zestril 10 MG] 10 mg PO QHS Follow up with: CODY DAMON MD [Primary Care Provider] - 11/02/16 10:00 am
[2016-10-25 16:49] VITALS: BP 136/65; O2SAT 98
[2016-10-25] MEDS ORDERED: Levofloxacin 500MG/100ML D5W 100 ML IV SCH (20:00)
== END 2016-10-25 18:35 | disposition home or self-care (01) ==
LOC: ED 16:40 → MED SURG 20:31
PROVIDERS: ADMIT Family Medicine; ATTEND Family Medicine
DX: R07.9 Chest pain, unspecified (principal); J44.9 Chronic obstructive pulmonary disease, unspecified; B35.1 Tinea unguium; E11.9 Type 2 diabetes mellitus without complications; E87.6 Hypokalemia; Z86.718 Personal history of other venous thrombosis and embolism; I10 Essential (primary) hypertension; K21.9 Gastro-esophageal reflux disease without esophagitis; F32.9 Major depressive disorder, single episode, unspecified; Z89.419 Acquired absence of unspecified great toe; Z79.4 Long term (current) use of insulin; Z79.899 Other long term (current) drug therapy
CPT/HCPCS: 36000; 36415; 71010; 71260; 80053; 82150; 82962; 83036; 83690; 83880; 84484; 85025; 85379; 85610; 85730; 87040; 93005; 93041; 93268; 94640; 94760; 96360; 96365; 99284; 99285; G0378; J1956

== ENCOUNTER 2016-12-30 15:18 | Emergency (ER) | payer MEDICARE ==
--- NOTE | 2016-12-30 16:19 | ERPHSYRPT ---
- History of Present Illness Time Seen by Provider: 12/30/16 16:07 Source: patient, family Exam Limitations: clinical condition Patient Subjective Stated Complaint: hx brain tumor and has had increased confusion since saturday Triage Nursing Assessment: ambulated to room per self. shuffled gait. states he is forgetting where he lives. smells strongly of urine. Physician History: The patient is a 66-year-old male with his daughter who brings the patient in for increasing confusion and forgetfulness for 3 days. She states this happened about 3 years ago in a similar manner. At that time he was seen in [place] and found to have a brain tumor. Fluid was drained off the brain tumor at that time. He was then sent to a specialist in [place] offered to remove the brain tumor through intranasal surgery. He did not return to [place] because he did not have transportation. He was seen by a eye doctor in [place] also at the time but quit going back he cause of the $40 co-pay that he could not afford. Saturday he went to an eye doctor in [place] who told him he had something in the back of his eyes and he needed to return to [place] to have the brain tumor looked at again. His daughter brings him in because he has refused to take showers, he urinates on himself, and has been very difficult in addition to being confused. His past medical history is significant for hypertension, asthma, and a brain tumor that was never resected. Timing/Duration: day(s) (3) Severity: severe Character of Deficits: other (confusion and memory loss) Baseline/Normal Cognition: alert oriented x 3 Current Cognition: alert but confused, alert/disoriented to time Baseline Gait: walks w/o assistance Associated Symptoms: confusion Allergies/Adverse Reactions: cefaclor [From Ceclor] Allergy (Verified 12/30/16 15:40) Hoarseness of voice Penicillins Allergy (Verified 12/30/16 15:40) Hives Home Medications: Aspirin [[place] Aspirin] 81 mg PO DAILY 10/24/16 [History] Cyanocobalamin 1000 Mcg/ml [Cyanocobalamin B-12 1000 MCG/ML] 1,000 mcg IJ [History] Dabigatran Etexilate Mesylate [Pradaxa] 150 mg PO BID 10/24/16 [History] Escitalopram Oxalate 20 mg PO DAILY 10/24/16 [History] Insulin Aspart [Novolog Flexpen] 35 unit SQ TID 10/24/16 [History] Insulin Glargine,Hum.rec.anlog [Lantus Solostar] 75 unit SQ BID 10/24/16 [ History] Lisinopril 10 mg [Zestril 10 MG] 10 mg PO DAILY 10/24/16 [History] Omeprazole [Prilosec] 40 mg PO DAILY 10/24/16 [History] Tiotropium [place] Inhaler [Spiriva 18 Mcg/Cap Inhaler] 1 ea IH DAILY [History] Fluticasone/Salmeterol [Advair 250-50 Diskus] 1 each IH BID 12/30/16 [History] Hx Tetanus, Diphtheria Vaccination/Date Given: No Hx Influenza Vaccination/Date Given: Yes Hx Pneumococcal Vaccination/Date Given: Yes - Review of Systems Constitutional: No Fever, No Chills Eyes: Vision Changes (states he needs glasses) Ears, Nose, & Throat: No Symptoms Respiratory: No Cough, No Dyspnea Cardiac: No Chest Pain, No Edema, No Syncope Abdominal/Gastrointestinal: No Abdominal Pain, No Nausea, No Vomiting, No Diarrhea Genitourinary Symptoms: Other (urination in clothes), No Dysuria Musculoskeletal: No Back Pain, No Neck Pain Skin: No Rash Neurological: Other (confusion) Psychological: No Symptoms Endocrine: No Symptoms Hematologic/Lymphatic: No Symptoms Immunological/Allergic: No Symptoms - Past Medical History Pertinent Past Medical History: Yes Neurological History: Peripheral Neuropathy, Other ENT History: Cataracts Cardiac History: Arrhythmia, Hypertension, Other Respiratory History: Asthma, COPD Endocrine Medical History: Diabetes Type II Musculoskeletal History: Arthritis GI Medical History: GERD History: No Pertinent History Psycho-Social History: Anxiety, Depression Male Reproductive Disorders: No Pertinent History Other Medical History: 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 , DVT - Past Surgical History Past Surgical History: Yes Neuro Surgical History: Other Cardiac: Cardiac Catheterization Respiratory: No Pertinent History Gastrointestinal: No Pertinent History Genitourinary: No Pertinent History Musculoskeletal: Orthopedic Surgery Male Surgical History: No Pertinent History Other Surgical History: GREAT TOE AMPUTATION - HIP REPLACEMENT - KNEE REPLACEMENT, colonoscopy, dx brain tumor 3 yrs ago - Social History Smoking Status: Current every day smoker How long have you smoked: 52 Exposure to second hand smoke: Yes Drug Use: none Patient Lives Alone: No - Nursing Vital Signs Nursing Vital Signs: Initial Vital Signs Temperature 97.6 F Temperature Source Oral Pulse Rate 57 Respiratory Rate 20 Blood Pressure [] 119/61 Pain Intensity 0 - [place] Coma Scale Best Eye Response ([place]): (4) open spontaneously Best Verbal Response ([place]): (5) oriented Best Motor Response ([place]): (6) obeys commands [place] Total: 15 - Physical Exam General Appearance: no apparent distress, alert Eye Exam: bilateral eye: normal inspection, PERRL, EOMI Ears, Nose, Throat Exam: normal ENT inspection, moist mucous membranes Neck Exam: normal inspection, non-tender, supple Respiratory: normal breath sounds, lungs clear, airway intact, No respiratory distress Cardiovascular: regular rate/rhythm, No edema Gastrointestinal: soft, No tenderness, No distention Rectal Exam: not done Extremity Exam: normal inspection, No pedal edema Mental Status: alert, cooperative, disoriented to place, other (Neurologic exam shows the patient not to be oriented to place or time. He was unable to perform any short term memory task. He states he doesn't know his daughter. When asked where his current location is, he told me he was in a tavern and had 2 big drinks. He did not have appropriate distant memory either. He did not know any of the recent presidents. He did not know the year nor time of the year. He would follow simple verbal commands. 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 Calcified aneurysm less likely. Per Dr Quintanilla. MRI with contrast may yield further information.) Ordered Tests: Active Orders 24 hr Category Date Time Status HEAD WITHOUT CONTRAST [CT] Stat Exams 12/30/16 16:30 Taken CBC W DIFF Stat Lab 12/30/16 17:05 Completed CMP Stat Lab 12/30/16 17:05 Completed UA Stat Lab 12/30/16 16:50 Completed Urine Triage Profile Stat Lab 12/30/16 16:50 Completed Lab/Rad Data: Laboratory Result Diagrams 12/30/16 17:05 04/30/17 17:05 Laboratory Results 12/30/16 12/30/16 12/30/16 Range/Units 17:05 17:05 16:50 WBC 10.8 H (4.0-10.5) K/mm3 RBC 4.36 (4.1-5.6) M/mm3 Hgb 11.8 L (12.5-18.0) gm/dl Hct 37.3 L (42-50) % MCV 85.6 (78-100) fl MCH 27.0 (26-32) pg MCHC 31.6 L (32-36) g/dl RDW 17.4 H (11.5-14.0) % Plt Count 294 (150-450) K/mm3 MPV 9.2 (6-9.5) fl Gran % 67.2 H (36.0-66.0) % Lymphocytes % 20.8 L (24.0-44.0) % Monocytes % 8.5 (0.0-12.0) % Eosinophils % 2.7 (0.00-5.0) % Basophils % 0.8 (0.0-0.4) % Basophils # 0.09 (0-0.4) Sodium 133 L (136-145) mEq/L Potassium 4.5 (3.5-5.1) mEq/L Chloride 99 (98-107) mEq/L Carbon Dioxide 23.4 (21-32) mEq/L Anion Gap 14.6 (5-15) MEQ/L BUN 10 (9-20) mg/dL Creatinine 0.99 (0.55-1.30) mg/dl Estimated GFR > 60 ML/MIN Glucose 151 H (70-110) MG/DL Calcium 8.6 (8.5-10.1) mg/dL Total Bilirubin 0.2 (0.2-1.0) mg/dL AST 18 (15-37) U/L ALT 16 (12-78) U/L Alkaline Phosphatase 59 (46-116) U/L Serum Total Protein 8.0 (6.4-8.2) gm/dL Albumin 2.9 L (3.4-5.0) g/dL Ur Collection Type Urine Color (YELLOW) Urine Appearance (CLEAR) Urine pH (5-6) Ur Specific [place] (1.005-1.025) Urine Protein (Negative) Urine Glucose (UA) (NEGATIVE) mg/dL Urine Ketones (NEGATIVE) Urine Nitrite (NEGATIVE) Urine Bilirubin (NEGATIVE) Urine Urobilinogen (0-1) mg/dL Urine WBC (Auto) (NEGATIVE) Urine RBC (Auto) (0-5) Clint/ul Urine Opiates Level NEG. (NEGATIVE) Ur Methadone NEG. (NEGATIVE) Urine Barbiturates NEG. (NEGATIVE) Ur Phencyclidine (PCP) NEG. (NEGATIVE) Urine Amphetamine NEG. (NEGATIVE) U Benzodiazepine Level NEG. (NEGATIVE) Urine Cocaine NEG. (NEGATIVE) Urine Marijuana (THC) NEG. (NEGATIVE) Specimen Received 12/30/16 Range/Units 16:50 WBC (4.0-10.5) K/mm3 RBC (4.1-5.6) M/mm3 Hgb (12.5-18.0) gm/dl Hct (42-50) % MCV (78-100) fl MCH (26-32) pg MCHC (32-36) g/dl RDW (11.5-14.0) % Plt Count (150-450) K/mm3 MPV (6-9.5) fl Gran % (36.0-66.0) % Lymphocytes % (24.0-44.0) % Monocytes % (0.0-12.0) % Eosinophils % (0.00-5.0) % Basophils % (0.0-0.4) % Basophils # (0-0.4) Sodium (136-145) mEq/L Potassium (3.5-5.1) mEq/L Chloride (98-107) mEq/L Carbon Dioxide (21-32) mEq/L Anion Gap (5-15) MEQ/L BUN (9-20) mg/dL Creatinine (0.55-1.30) mg/dl Estimated GFR ML/MIN Glucose (70-110) MG/DL Calcium (8.5-10.1) mg/dL Total Bilirubin (0.2-1.0) mg/dL AST (15-37) U/L ALT (12-78) U/L Alkaline Phosphatase (46-116) U/L Serum Total Protein (6.4-8.2) gm/dL Albumin (3.4-5.0) g/dL Ur Collection Type CLEAN CATCH Urine Color YELLOW (YELLOW) Urine Appearance CLEAR (CLEAR) Urine pH 5.5 (5-6) Ur Specific [place] 1.010 (1.005-1.025) Urine Protein NEGATIVE (Negative) Urine Glucose (UA) NEGATIVE (NEGATIVE) mg/dL Urine Ketones NEGATIVE (NEGATIVE) Urine Nitrite NEGATIVE (NEGATIVE) Urine Bilirubin NEGATIVE (NEGATIVE) Urine Urobilinogen 0.2 (0-1) mg/dL Urine WBC (Auto) NEGATIVE (NEGATIVE) Urine RBC (Auto) NEGATIVE (0-5) Clint/ul Urine Opiates Level (NEGATIVE) Ur Methadone (NEGATIVE) Urine Barbiturates (NEGATIVE) Ur Phencyclidine (PCP) (NEGATIVE) Urine Amphetamine (NEGATIVE) U Benzodiazepine Level (NEGATIVE) Urine Cocaine (NEGATIVE) Urine Marijuana (THC) (NEGATIVE) Specimen Received 12/30/16:1655 - Progress Progress: unchanged - Departure Time of Disposition: 18:53 Departure Disposition: Transfer (transfer to [facility] per Dr Rodrigez, neurosurgeon.) Clinical Impression: Brain tumor, Acute confusion due to medical condition Condition: Stable Critical Care Time: No
[2016-12-30 17:12] LABS: BASOPHIL % 0.8 % (0.0-0.4); Eosinophil % 2.7 % (0.00-5.0); Granulocytes % 67.2 % (36.0-66.0); Lymphocytes % 20.8 % (24.0-44.0); Mean Cell Volume 85.6 fl (78-100); Mean Platelet Volume 9.2 fl (6-9.5); Monocytes % 8.5 % (0.0-12.0); Platelet Count 294 K/mm3 (150-450); Red Blood Count 4.36 M/mm3 (4.1-5.6); Red Cell Distribution Width 17.4 % (11.5-14.0); White Blood Count 10.8 K/mm3 (4.0-10.5)
[2016-12-30 17:16] LABS: COMPLETE URINE MICROSCOPIC? NO; Collection Type CLEAN CATCH; Ph 5.5 (5-6)
[2016-12-30 17:29] LABS: ALBUMIN 2.9 g/dL (3.4-5.0); ALKALINE PHOSPHATASE 59 U/L (46-116); ANION GAP 14.6 MEQ/L (5-15); BILIRUBIN,TOTAL 0.2 mg/dL (0.2-1.0); BLOOD UREA NITROGEN 10 mg/dL (9-20); CHLORIDE 99 mEq/L (98-107); Carbon Dioxide 23.4 mEq/L (21-32); Glucose 151 MG/DL (70-110); Potassium 4.5 mEq/L (3.5-5.1); SGOT/AST 18 U/L (15-37); SGPT/ALT 16 U/L (12-78); SODIUM 133 mEq/L (136-145)
[2016-12-30 18:06] VITALS: BP 119/61; PULSE 57; O2SAT 95
--- NOTE | 2016-12-30 22:17 | XRAY ---
Indication: Confusion and headache. Patient reports history of brain tumor. Multiple contiguous axial images obtained through the head without contrast. Comparison: None. Age-appropriate global atrophy and mild periventricular degenerative microvascular ischemia bilaterally. There is a complex sellar mass extending superiorly demonstrating chunky calcifications and cystic component. It measures 2.1 x 3.0 x 2.5 cm. 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 Calcified aneurysm not completely excluded on this noncontrast exam. No acute intracranial hemorrhage, abnormal extra-axial fluid collection, or mass effect. Fourth ventricle is midline without hydrocephalus. Dense falx calcification. Bony calvarium intact. Visualized paranasal sinuses are clear. There is partial opacification of the left mastoid air cells. Impression: 1. 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 Calcified aneurysm not completely excluded on this noncontrast exam. Comparison studies would be of benefit. MRI brain with contrast may yield further information. 2. Normal aging as evidenced by atrophy and degenerative microvascular ischemia. 3. Partial opacification of the left mastoid air cells presumed inflammatory. CTDI 69.25
== END 2016-12-30 20:00 | disposition short-term general hospital (02) ==
LOC: ED 15:18
DX: D49.6 Neoplasm of unspecified behavior of brain (principal); R41.0 Disorientation, unspecified; I10 Essential (primary) hypertension; J44.9 Chronic obstructive pulmonary disease, unspecified; R41.3 Other amnesia; J45.909 Unspecified asthma, uncomplicated; E11.9 Type 2 diabetes mellitus without complications; Z79.4 Long term (current) use of insulin; K21.9 Gastro-esophageal reflux disease without esophagitis; F41.8 Other specified anxiety disorders; G62.9 Polyneuropathy, unspecified; Z86.718 Personal history of other venous thrombosis and embolism; Z72.0 Tobacco use; Z79.899 Other long term (current) drug therapy
CPT/HCPCS: 36415; 70450; 80053; 80307; 81002; 85025; 99283

== ENCOUNTER 2017-04-09 10:00 | Emergency (ER) | payer MEDICARE ==
[2017-04-09] MEDS ORDERED: Sodium Chloride 0.9% 1000 ML 1,000 ML ONE ×2 (10:38→11:54)
--- NOTE | 2017-04-09 10:41 | ERPHSYRPT ---
- History of Present Illness Time Seen by Provider: 04/09/17 10:34 Source: patient Exam Limitations: clinical condition Physician History: The patient is a 66-year-old male brought in by ambulance from a local intermediate where he has been cared for for the past 3 days after having a brain tumor removed in December. Today he has become less responsive and has a fever. He is unable to communicate. His past medical history is significant for brain tumor resection, adrenal insufficiency, hyponatremia, diabetes insipidus, metabolic encephalopathy, and chronic kidney disease. The patient is a full code. Timing/Duration: today Fever Severity: moderate Associated Symptoms: confusion, cough, shortness of breath Allergies/Adverse Reactions: cefaclor [From Ceclor] Allergy (Verified 12/30/16 15:40) Hoarseness of voice Penicillins Allergy (Verified 12/30/16 15:40) Hives Hx Tetanus, Diphtheria Vaccination/Date Given: No Hx Influenza Vaccination/Date Given: Yes Hx Pneumococcal Vaccination/Date Given: Yes - Review of Systems Constitutional: Fever, Lethargy Eyes: No Symptoms Respiratory: Cough, Dyspnea Cardiac: No Chest Pain, No Edema, No Syncope Abdominal/Gastrointestinal: No Abdominal Pain, No Nausea, No Vomiting, No Diarrhea Genitourinary Symptoms: No Dysuria Musculoskeletal: No Back Pain, No Neck Pain Skin: No Rash Neurological: Other (decreased LOC) Psychological: No Symptoms Endocrine: No Symptoms Hematologic/Lymphatic: No Symptoms Immunological/Allergic: No Symptoms All Other Systems: Reviewed and Negative - Past Medical History Pertinent Past Medical History: Yes Neurological History: Peripheral Neuropathy, Other ENT History: Cataracts Cardiac History: Arrhythmia, Hypertension, Other Respiratory History: Asthma, COPD Endocrine Medical History: Diabetes Type II Musculoskeletal History: Arthritis GI Medical History: GERD History: No Pertinent History Psycho-Social History: Anxiety, Depression Male Reproductive Disorders: No Pertinent History Other Medical History: 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 , DVT - Past Surgical History Past Surgical History: Yes Neuro Surgical History: Other Cardiac: Cardiac Catheterization Respiratory: No Pertinent History Gastrointestinal: No Pertinent History Genitourinary: No Pertinent History Musculoskeletal: Orthopedic Surgery Male Surgical History: No Pertinent History Other Surgical History: GREAT TOE AMPUTATION - HIP REPLACEMENT - KNEE REPLACEMENT, colonoscopy, dx brain tumor 3 yrs ago - Social History Smoking Status: Current every day smoker How long have you smoked: 52 Exposure to second hand smoke: Yes Drug Use: none Patient Lives Alone: No - Nursing Vital Signs Nursing Vital Signs: Initial Vital Signs Temperature 101.1 F 04/09/17 10:01 Pulse Rate 110 H 04/09/17 10:01 Respiratory Rate 26 H 04/09/17 10:01 Blood Pressure 94/75 04/09/17 10:01 O2 Sat by Pulse Oximetry 99 04/09/17 10:01 Pain Scale Pain Intensity 2 - Physical Exam General Appearance: severe distress Eye Exam: PERRL/EOMI ENT Exam: normal ENT inspection, No pharyngeal erythema, No tonsillar exudate Neck Exam: supple, full range of motion, No meningismus Respiratory Exam: lungs clear Cardiovascular/Chest Exam: normal heart sounds, regular rate/rhythm, No murmur, No edema Gastrointestinal/Abdominal Exam: soft, non tender, no distention Rectal Exam: not done Extremity Exam: non-tender, normal range of motion, normal inspection (pt wearing bilateral support devices to lower legs), normal capillary refill Neurologic Exam: other (pt unable to communicate) Skin Exam: normal color, warm, dry, No rash SpO2 Interpretation: O2 applied - Course EKG Interpreted by Me: Sinus Tach, Right Bundle Branch Block, NORMAL ST-T - Radiology Exams Chest X-ray Interpretation: Teleradiologist Report (new left base infitrate/ atelectasis/effusion per Dr Yusuf) - CT Exams Head CT Interpretation: Tele-radiologist Report (postsurgical changes with no complications per Dr Yusuf) Ordered Tests: Active Orders 24 hr Category Date Time Status Planning Management It Specialist STAT Care 04/09/17 10:45 Active Catheter-[place] STAT Care 04/09/17 10:45 Active EKG-ER Only STAT Care 04/09/17 10:45 Active IV Insertion STAT Care 04/09/17 10:45 Active Pulse Oximetry (ED) STAT Care 04/09/17 10:45 Active CHEST 1 VIEW (PORTABLE) Stat Exams 04/09/17 10:46 Completed HEAD WITHOUT CONTRAST [CT] Stat Exams 04/09/17 10:49 Completed BLOOD CULTURE Stat Lab 04/09/17 11:09 Received CBC W DIFF Stat Lab 04/09/17 11:00 Completed CMP Stat Lab 04/09/17 11:00 Completed CULTURE, THROAT Stat Lab 04/09/17 11:09 Received CULTURE,URINE Stat Lab 04/09/17 11:05 Received Lactic Acid Stat Lab 04/09/17 10:45 Completed STREP SCREEN-BETA A Stat Lab 04/09/17 11:09 Completed Sputum Culture [CULTURE,SPUTUM] Stat Lab 04/09/17 10:00 Received UA W/ MICROSCOPIC Stat Lab 04/09/17 11:05 Completed Medication Summary Discontinued Medications Generic Name Dose Route Start Last Admin Trade Name Lulu PRN Reason Stop Dose Admin Acetaminophen 975 mg 04/09/17 10:45 04/09/17 11:52 [place] 650 Mg NH 04/09/17 10:46 975 mg STAT STA Administration Acetaminophen Confirm 04/09/17 11:42 [place] 650 Mg Administered 04/09/17 11:43 Dose 650 mg .ROUTE .STK-MED ONE Acetaminophen Confirm 04/09/17 11:42 [place] 325 Mg Administered 04/09/17 11:43 Dose 325 mg .ROUTE .STK-MED ONE Sodium Chloride Confirm 04/09/17 10:38 Sodium Chloride 0.9% 1000 Ml Administered 04/09/17 10:39 Dose 1,000 mls @ ud .ROUTE .STK-MED ONE Sodium Chloride 1,000 mls @ 999 mls/hr 04/09/17 10:45 04/09/17 10:50 Sodium Chloride 0.9% 1000 Ml IV 04/09/17 11:45 999 mls/hr .Q1H1M STA Administration Sodium Chloride Confirm 04/09/17 11:54 Sodium Chloride 0.9% 1000 Ml Administered 04/09/17 11:55 Dose 1,000 mls @ ud .ROUTE .STK-MED ONE Lab/Rad Data: Laboratory Result Diagrams 04/09/17 11:00 04/09/17 11:00 Laboratory Results 04/09/17 04/09/17 04/09/17 Range/Units 11:09 11:09 11:05 WBC (4.0-10.5) K/mm3 RBC (4.1-5.6) M/mm3 Hgb (12.5-18.0) gm/dl Hct (42-50) % MCV (78-100) fl MCH (26-32) pg MCHC (32-36) g/dl RDW (11.5-14.0) % Plt Count (150-450) K/mm3 MPV (6-9.5) fl Gran % (36.0-66.0) % Lymphocytes % (24.0-44.0) % Monocytes % (0.0-12.0) % Eosinophils % (0.00-5.0) % Basophils % (0.0-0.4) % Basophils # (0-0.4) Sodium (136-145) mEq/L Potassium (3.5-5.1) mEq/L Chloride (98-107) mEq/L Carbon Dioxide (21-32) mEq/L Anion Gap (5-15) MEQ/L BUN (9-20) mg/dL Creatinine (0.55-1.30) mg/dl Estimated GFR ML/MIN Glucose (70-110) MG/DL Lactic Acid (0.4-2.0) Calcium (8.5-10.1) mg/dL Total Bilirubin (0.2-1.0) mg/dL AST (15-37) U/L ALT (12-78) U/L Alkaline Phosphatase (46-116) U/L Serum Total Protein (6.4-8.2) gm/dL Albumin (3.4-5.0) g/dL Ur Collection Type CATH Urine Color YELLOW (YELLOW) Urine Appearance CLEAR (CLEAR) Urine pH 7.0 (5-6) Ur Specific [place] 1.010 (1.005-1.025) Urine Protein TRACE (Negative) Urine Ketones NEGATIVE (NEGATIVE) Urine Blood NEGATIVE (0-5) Clint/ul Urine Nitrite NEGATIVE (NEGATIVE) Urine Bilirubin NEGATIVE (NEGATIVE) Urine Urobilinogen NORMAL (0-1) mg/dL Ur Leukocyte Esterase TRACE (NEGATIVE) Urine Microscopic WBC 10-15 (0-5) /HPF Ur Epithelial Cells MODERATE (FEW) /HPF Urine Bacteria FEW (NEGATIVE) /HPF Urine Mucus SLIGHT (NEGATIVE) /HPF Urine Glucose NEGATIVE (NEGATIVE) mg/dL Influenza Type A Ag NEGATIVE (NEGATIVE) Influenza Type B Ag NEGATIVE (NEGATIVE) RSV (PCR) NEGATIVE (Negative) Streptococcus Screen NEGATIVE (Negative) Slides for Path Review Specimen Received 04/09/17 1105 04/09/17 04/09/17 04/09/17 Range/Units 11:00 11:00 10:45 WBC 11.6 H (4.0-10.5) K/mm3 RBC 3.19 L (4.1-5.6) M/mm3 Hgb 8.3 L (12.5-18.0) gm/dl Hct 29.0 L (42-50) % MCV 90.9 (78-100) fl MCH 26.0 (26-32) pg MCHC 28.6 L (32-36) g/dl RDW 18.2 H (11.5-14.0) % Plt Count 713 H (150-450) K/mm3 MPV 10.2 H (6-9.5) fl Gran % 72.4 H (36.0-66.0) % Lymphocytes % 18.9 L (24.0-44.0) % Monocytes % 6.1 (0.0-12.0) % Eosinophils % 2.2 (0.00-5.0) % Basophils % 0.4 (0.0-0.4) % Basophils # 0.05 (0-0.4) Sodium 148 H (136-145) mEq/L Potassium 5.2 H (3.5-5.1) mEq/L Chloride 109 H (98-107) mEq/L Carbon Dioxide 31.7 (21-32) mEq/L Anion Gap 12.1 (5-15) MEQ/L BUN 29 H (9-20) mg/dL Creatinine 1.65 H (0.55-1.30) mg/dl Estimated GFR 45 ML/MIN Glucose 285 H (70-110) MG/DL Lactic Acid 1.7 (0.4-2.0) Calcium 9.7 (8.5-10.1) mg/dL Total Bilirubin 0.10 L (0.2-1.0) mg/dL AST 32 (15-37) U/L ALT 21 (12-78) U/L Alkaline Phosphatase 118 H (46-116) U/L Serum Total Protein 8.3 H (6.4-8.2) gm/dL Albumin 2.5 L (3.4-5.0) g/dL Ur Collection Type Urine Color (YELLOW) Urine Appearance (CLEAR) Urine pH (5-6) Ur Specific [place] (1.005-1.025) Urine Protein (Negative) Urine Ketones (NEGATIVE) Urine Blood (0-5) Clint/ul Urine Nitrite (NEGATIVE) Urine Bilirubin (NEGATIVE) Urine Urobilinogen (0-1) mg/dL Ur Leukocyte Esterase (NEGATIVE) Urine Microscopic WBC (0-5) /HPF Ur Epithelial Cells (FEW) /HPF Urine Bacteria (NEGATIVE) /HPF Urine Mucus (NEGATIVE) /HPF Urine Glucose (NEGATIVE) mg/dL Influenza Type A Ag (NEGATIVE) Influenza Type B Ag (NEGATIVE) RSV (PCR) (Negative) Streptococcus Screen (Negative) Slides for Path Review YES Specimen Received - Progress Progress: unchanged Discussed with Dr.: Ray (discussed pt with DR Ray who requests pt to be sent to [facility] Counseled pt/family regarding: lab results, diagnosis, rad results - Departure Time of Disposition: 13:33 Departure Disposition: Transfer (Transfer to [facility] Hospitalist per Dr Mayes.) Clinical Impression: Fever, UTI (urinary tract infection), Hyperkalemia, Hypernatremia, Renal failure Condition: Fair Critical Care Time: No
[2017-04-09] MEDS ORDERED: FEVERALL 650 MG PR STA (10:45)
[2017-04-09] MEDS ORDERED: Sodium Chloride 0.9% 1000 ML 1,000 ML IV STA (10:45)
[2017-04-09 11:13] LABS: BASOPHIL % 0.4 % (0.0-0.4); Eosinophil % 2.2 % (0.00-5.0); Granulocytes % 72.4 % (36.0-66.0); Lymphocytes % 18.9 % (24.0-44.0); Mean Cell Volume 90.9 fl (78-100); Mean Platelet Volume 10.2 fl (6-9.5); Monocytes % 6.1 % (0.0-12.0); Platelet Count 713 K/mm3 (150-450); Red Blood Count 3.19 M/mm3 (4.1-5.6); Red Cell Distribution Width 18.2 % (11.5-14.0); White Blood Count 11.6 K/mm3 (4.0-10.5)
[2017-04-09 11:22] LABS: ADD URINE CULTURE? YES (NO); Bacteria FEW /HPF (NEGATIVE); Bilirubin NEGATIVE (NEGATIVE); Blood NEGATIVE Ery/ul (0-5); COMPLETE URINE MICROSCOPIC? YES; Collection Type CATH; Epithelial Cells MODERATE /HPF (FEW); Glucose NEGATIVE (NEGATIVE); Leukocyte Esterase TRACE (NEGATIVE); Mucus SLIGHT /HPF (NEGATIVE)
[2017-04-09 11:36] LABS: ALBUMIN 2.5 g/dL (3.4-5.0); ANION GAP 12.1 MEQ/L (5-15); BILIRUBIN,TOTAL 0.1 mg/dL (0.2-1.0); Carbon Dioxide 31.7 mEq/L (21-32); Potassium 5.2 mEq/L (3.5-5.1); Total Protein 8.3 gm/dL (6.4-8.2)
[2017-04-09] MEDS ORDERED: FEVERALL 650 MG ONE (11:42)
[2017-04-09] MEDS ORDERED: FEVERALL 325 MG ONE (11:42)
[2017-04-09] MEDS: Sodium Chloride 0.9% 1000 ML 1,000 ML IV STA ×2 (11:50→15:57)
--- NOTE | 2017-04-09 12:08 | XRAY ---
Indication: Short of breath and fever. Comparison: August 23, 2017. Portable chest remains underinflated again with borderline cardiomegaly. There is now left lung base infiltrate, atelectasis, effusion, or combination. Right lung clear. Bony thorax intact again with mild osteopenia and degenerative changes. Impression: New left base infiltrate/atelectasis/effusion. Stable borderline cardiomegaly.
--- NOTE | 2017-04-09 12:09 | XRAY ---
Indication: Acute mental status change. Fever. Status post tumor removal December 2016. Multiple contiguous axial images obtained through the head without contrast. Comparison: December 30, 2016. Previous sellar mass not seen consistent with patient's surgical history. No acute intracranial hemorrhage, abnormal extra-axial fluid collection, or mass effect. Stable global atrophy and mild perivascular degenerative micro-ischemia bilaterally. Fourth ventricle is midline without hydrocephalus. Bony calvarium intact. There is now complete opacification of both sphenoid sinuses with tiny fluid leveling in the left maxillary sinus. Stable partial opacification of left mastoid air cells. Impression: 1. Status post surgical resection of previous sellar mass. No complications. 2. Stable normal aging brain. 3. New paranasal sinus opacification either inflammatory or related to patient's recent surgery. CT DI 68.32
[2017-04-09 14:05] VITALS: BP 80/56; PULSE 92; O2SAT 100
[2017-04-09] MEDS ORDERED: Sodium Chloride 0.9% 500 ML 500 ML IV ONE (15:55)
== END 2017-04-09 16:00 | disposition short-term general hospital (02) ==
LOC: ED 10:00
DX: R50.9 Fever, unspecified (principal); N39.0 Urinary tract infection, site not specified; E87.5 Hyperkalemia; E87.0 Hyperosmolality and hypernatremia; N19 Unspecified kidney failure; E27.40 Unspecified adrenocortical insufficiency; D49.6 Neoplasm of unspecified behavior of brain
CPT/HCPCS: 36000; 36415; 51702; 70450; 71010; 80053; 81000; 83605; 85025; 87040; 87070; 87077; 87086; 87186; 87430; 87631; 93005; 93041; 96360; 96361; 99285; A9270-GY